=== PATIENT | male | born 1995 | race Caucasian/White ===

== ENCOUNTER 2017-07-29 20:58 | Emergency (ER) | payer OTHER, SELFPAY ==
[2017-07-29] MEDS ORDERED: Bacitracin Zinc 1 Packet ONE (21:36)
[2017-07-29] MEDS ORDERED: Adacel (T-DAP) 0.5 ML VIAL ONE (21:36)
[2017-07-29] MEDS ORDERED: HYDROcodone/Acetaminophen 10/325 mg Tablet ONE (21:44)
[2017-07-29] MEDS ORDERED: Ibuprofen 800 MG TAB ONE (21:45)
--- NOTE | 2017-07-29 22:41 | RAD ---
PELVIS 07/29/17 No fracture was appreciated. The left hip in particular appeared intact where I understand the maxim al pain is. The pubic ring appears intact. The symphysis shows no widening or offset. The SI joints are symmetrical. The hip joints are equal in width bilaterally. IMPRESSION: No acute finding. POS: HOME
--- NOTE | 2017-07-29 22:42 | RAD ---
LEFT SHOULDER THREE VIEWS: 07/29/17 No fracture or dislocation was seen. The AC joint is not widened. The scapula appears intact, as do the visible adjacent ribs. IMPRESSION: No acute findings. POS: HOME
== END 2017-07-29 21:50 | disposition home or self-care (01) ==
LOC: BURERS 20:58
DX: S40.012A Contusion of left shoulder, initial encounter (principal); S70.212A Abrasion, left hip, initial encounter; Z23 Encounter for immunization; Z87.891 Personal history of nicotine dependence; V28.4XXA Motorcycle driver injured in noncollision transport accident in traffic accident, initial encounter
CPT/HCPCS: 72170; 90471; 90715; G0390